=== PATIENT | female | born 1975 | race Caucasian/White ===

== ENCOUNTER 2021-07-11 09:28 | Emergency (ER) | payer SELFPAY ==
--- NOTE | ~2021-07-11 | XR_ITS ---
EXAMINATION: XR foot RT min 3V EXAM DATE: 07/11/2021 09:47 INDICATION: Dropped Weight On Foot,Dorsal Swelling/Bruising/Pn . TECHNIQUE: Right foot dorsoplantar, lateral and oblique projections obtained and reviewed. There is no prior study for comparison. FINDINGS: Right metatarsal bones unremarkable. There are no acute fractures or dislocations identifi ed. There is no subcutaneous gas. There is soft tissue swelling over the forefoot dorsally. There are no radiopaque foreign bodies. IMPRESSION: 1. XR foot RT min 3V exam without acute osseous findings. 2. Soft tissue swelling. Reviewed, dictated and finalized at location B. [facility] [employer]
[2021-07-11 09:40] VITALS: BP 114/62; PULSE 107; RESP 14; TEMP 37.2; O2SAT 98
--- NOTE | 2021-07-11 09:47 | PC.NURSE ---
PT DECLINED ICE FOR COMFORT
--- NOTE | 2021-07-11 09:48 | ED.LOWEXIN ---
HPI - Extremity Injury (Lower) General Chief Complaint: Extremity Injury, Lower Stated Complaint: Right Foot Injury Time Seen by Provider: 07/11/21 10:09 Source: patient and RN notes reviewed Mode of arrival: ambulatory Limitations: no limitations History of Present Illness HPI Narrative: 45-year-old female presents the concern for right foot swelling, bruising, pain. Reports prior to arrival she dropped a 45 pound weight at the gym on her foot. She reports pain at rest, pain with weightbearing. She reports she is used ice. She denies decreased range of motion in the ankle or digits. complaint: foot injury Related Data Home Medications Medication Instructions Recorded Confirmed No Home Medications 07/11/21 07/11/21 Allergies Allergy/AdvReac Type Severity Reaction Status Date / Time No Known Allergies Allergy Verified 07/11/21 10:05 Review of Systems Review of Systems: CONSTITUTIONAL: Denies malaise, chills, sweats, or fever. SKIN: Denies rash or itching, open skin, laceration, abrasion, redness, warmth MUSCULOSKELETAL: Reports right foot pain with bruising and swelling NEUROLOGIC: Denies numbness, weakness All systems reviewed & are unremarkable except as noted in HPI and below PMFSH Comments At time of signature, agree with nursing past medical, surgical, social and family history. There is no relevant family history pertinent to the presenting complaint Exam Narrative: GENERAL: Well-appearing, well-nourished, and in no acute distress. HEAD: Normocephalic, atraumatic. EYES: PERRLA, conjunctivae clear NECK: Supple. CHEST: Speaks in full sentences. No respiratory distress. HEART: Regular rate and rhythm. Normal and equal peripheral pulses. EXTREMITIES: Right foot, digits have normal strength and sensation, normal range of motion. Moderate dorsal well-demarcated edema and ecchymosis. 5/5 strength with ankle and digit flexion and extension. Normal sensation with sensitivity to light touch and pain. Dorsal tenderness. No open wounds, no skin tenting, no devitalized tissue or atrophy, no trophic changes, no obvious deformity, alignment normal, nearby joints and structures intact. Distal pulses palpable and equal bilaterally, skin warm, dry, pink. Capillary refill less than 3 seconds. SKIN: Warm, dry, no rash. NEURO: Alert and oriented x3. PSYCH: Normal mood and affect Course Course Emergency Course: Patient is aware of diagnosis, understands and agrees to treatment plan. Anticipatory guidance given. Patient agrees to follow-up as directed and is aware of reasons to seek care at the emergency department. Portions of this record may have been created with voice recognition software Level of Care: Express Care Visit Vital Signs Vital signs: Vital Signs Temperature 98.9 F 07/11/21 09:40 Pulse Rate 107 H 07/11/21 09:40 Respiratory Rate 14 07/11/21 09:40 Blood Pressure 114/62 07/11/21 09:40 Pulse Oximetry 98 07/11/21 09:40 Temperature 98.9 F 07/11/21 09:40 Pulse Rate 107 H 07/11/21 09:40 Respiratory Rate 14 07/11/21 09:40 Blood Pressure 114/62 07/11/21 09:40 Pulse Oximetry 98 07/11/21 09:40 Reviewed. MDM - Extremity Injury (Lower) MDM Narrative Medical decision making narrative: Patients injury and pain is consistent with musculoskeletal etiology. No signs of neurological or vascular compromise on exam. Compartments and tissues are soft without signs of compartment syndrome. Pain is felt appropriate for further evaluation on an outpatient basis. Imaging Data My impression: Images reviewed, interpreted by radiologist, agree, see report. Radiologist's impression: EXAMINATION: XR foot RT min 3V EXAM DATE: 07/11/2021 09:47 INDICATION: Dropped Weight On Foot,Dorsal Swelling/Bruising/Pn . TECHNIQUE: Right foot dorsoplantar, lateral and oblique projections obtained and reviewed. There is no prior study for comparison. FINDINGS: Right metatarsal bones unremarkable. Th
== END 2021-07-11 10:20 | disposition home or self-care (01) ==
PROVIDERS: Emergency Provider Nurse Practitioner; PCP Internal Medicine
DX: S90.31XA Contusion of right foot, initial encounter (principal); W20.8XXA Other cause of strike by thrown, projected or falling object, initial encounter
CPT/HCPCS: 73630; 99213; G0463